=== PATIENT | female | born 1955 | race Caucasian/White ===

== ENCOUNTER → 2020-04-07 09:12 | Outpatient (CLI) | payer OTHER, SELFPAY ==
--- NOTE | ~2020-04-07 | MMUS_ITS ---
EXAMINATION: MM diagnostic althea BI w souleymane, US breast LT limited HISTORY: Follow-up left breast mass TECHNIQUE: Additional 3-D tomosynthesis images of the left breast were performed and synthetic 2-D im ages were generated. CAD analysis was submitted and interpreted. High resolution left breast ultrasou nd was performed. COMPARISON: Comparison to multiple prior studies sequentially, with oldest reviewed study dated 09/2014. BREAST PARENCHYMAL COMPOSITION: Breast composed of scattered areas of fibroglandular density FINDINGS: MAMMOGRAPHIC FINDINGS: The breasts are stable. Focal asymmetry upper outer quadrant of the left breast is unchanged. There a re stable scattered benign-appearing calcifications. No new masses, calcifications or architectural d istortion are identified to suggest malignancy. ULTRASOUND: Left breast ultrasound: At 2:00, 4 cm from the nipple, there is an oval circumscribed hypoechoic mass measuring 8 x 4 x 8 mm. No internal vascularity or posterior shadowing. This mass is unchanged from prior exam dating back to 12/20/2018. IMPRESSION: 1. Stable likely benign left breast mass at 2:00, 4 cm from the nipple. 2. Recommend 6 month follow-up left breast ultrasound BI-RADS category 3, probably benign findings. Reviewed, dictated and finalized at location A. IMPRESSION: 1. Stable likely benign left breast mass at 2:00, 4 cm from the nipple. 2. Recommend 6 month follow-up left breast ultrasound BI-RADS category 3, probably benign findings.
== END ==
DX: R92.8 Other abnormal and inconclusive findings on diagnostic imaging of breast (principal)
CPT/HCPCS: 76642; 77062; 77066; G0279